=== PATIENT | male | born 1995 | race African-American/Black ===

== ENCOUNTER 2020-10-01 11:08 | Emergency (ER) | payer OTHER ==
[~2020-10-01] VITALS: Ht 195.6 cm; Wt 74.8 kg
[2020-10-01 11:51] LABS: ABSOLUTE NEUTROPHILS 5.6 thou/uL (1.4-8.2); BASOPHILS 0.6 % (0.0-2.0); EOSINOPHILS 2.6 % (0.0-3.0); HEMATOCRIT 41.6 % (42.0-52.0); HEMOGLOBIN 14.4 gm/dL (14.0-18.0); LYMPHOCYTES 25.4 % (24.0-44.0); MCH 28.6 pg (26.0-34.0); MCHC 34.7 g/dL (28.0-37.0); MCV 82.4 fL (80.0-100.0); MONOCYTES 7.4 % (1.0-8.0); PLATELET COUNT 231 thou/uL (150-400); RBC 5.05 mil/uL (4.50-6.00); RDW 13.4 % (10.5-14.5); WBC 8.7 thou/uL (4.0-11.0)
[2020-10-01 11:54] LABS: ANION GAP 9 mmol/L (7-16); BUN 11 mg/dL (7-18); CALCIUM 9.2 mg/dL (8.5-10.1); CHLORIDE 105 mmol/L (98-107); CO2 28 mmol/L (21-32); GLUCOSE 94 mg/dL (74-106); POTASSIUM 3.7 mmol/L (3.5-5.1); SODIUM 142 mmol/L (136-145)
[2020-10-01 12:03] LABS: TROPONIN-I <0.06 ng/mL (<0.06)
--- NOTE | 2020-10-01 12:35 | EKG ---
[facility] [place] [address] ELECTROCARDIOGRAM REPORT Name: JIM SUNSHINE Room #: REG BEKAH M.RLisa#: [id number] Admission: 10/01/20 Attend Phys: Discharge: Date of : [birth year] Report #: [id number] [facility] ED Test Date: 2020-10-01 Test Time: 11:16:14 Pat Name: JIM SUNSHINE Department: Room: Gender: M [employer] Director: KATHLEEN : 1995 Requested By: Manolo Roche Order Number: [id number] MD: Jose Mcconnell Measurements Intervals [place] Rate: 58 P: 32 AR: 60 QRS: 66 QRSD: 95 T: 44 QT: 394 QTc: 387 Interpretive Statements Sinus rhythm Short AR interval RSR' in V1 or V2, right VCD or RVH Baseline wander in lead(s) III No previous ECG available for comparison Electronically Signed On 10-01-2020 12:35:09 CDT by Jose Mcconnell [email or web address] <ELECTRONICALLY SIGNED> By: Jose Mcconnell MD, [facility] 10/01/20 1235 [id number] Jose Mcconnell MD, FACC /EPI
[2020-10-01 13:43] LABS: URINE BILIRUBIN NEGATIVE (Negative); URINE BLOOD TRACE (Negative); URINE CLARITY CLEAR; URINE COLOR YELLOW; URINE GLUCOSE-RANDOM* NEGATIVE (Negative); URINE KETONES NEGATIVE (Negative); URINE LEUKOCYTES-REFLEX NEGATIVE (Negative); URINE NITRITE-REFLEX NEGATIVE (Negative); URINE PROTEIN (DIPSTICK) NEGATIVE (Negative); URINE SPECIFIC GRAVITY <= 1.005 (1.005-1.035); URINE UROBILINOGEN 0.2 E.U./dl (0.2-1.0)
[2020-10-01 13:50] LABS: AMP/METHAMP Negative (Negative); BARBITURATES Negative (Negative); BENZODIAZEPINES Negative (Negative); COCAINE Negative (Negative); METHADONE Negative (Negative); OPIATES Negative (Negative); PCP Negative (Negative)
[2020-10-01 14:28] VITALS: BP 117/68
== END 2020-10-01 14:28 | disposition home or self-care (01) ==
LOC: ER 11:08
PROVIDERS: Nurse Practitioner
DX: R55 Syncope and collapse (principal)